=== PATIENT | female | born 1955 | race Hispanic/Latino ===

== ENCOUNTER 2017-07-04 12:23 | Outpatient (CLI) | payer OTHER ==
--- NOTE | 2017-07-05 00:31 | XRay Report ---
FINAL REPORT PROCEDURE: XR KNEE 4+V LT TECHNIQUE: LEFT knee radiographs, AP, lateral and sunrise views. CPT 21833 HISTORY: LEFT KNEE PAIN COMPARISON: No prior studies are available for comparison. FINDINGS: Fracture (s) and/or Dislocation(s): None . Alignment: Normal . Joint space(s): Normal . Soft tissues: Normal . Bone mineralization: Mild generalized osteopenia. Foreign bodies: None . IMPRESSION: No evidence of an acute fracture dislocation. Mild generalized osteopenia.
== END 2017-07-04 12:24 | disposition home or self-care (01) ==
LOC: SPVIMAG 12:23
PROVIDERS: ATTEND Orthopaedic Surgery
DX: M85.862 Other specified disorders of bone density and structure, left lower leg (principal)